=== PATIENT | male | born 1980 | race Caucasian/White ===

== ENCOUNTER 2019-10-17 03:30 | Emergency (ER) | payer SELFPAY ==
[2019-10-17] MEDS ORDERED: Acetaminophen/HYDROcodone 325-5 MG Tab PO ONE (03:31)
[2019-10-17 03:37] VITALS: BP 138/91; PULSE 109
[2019-10-17] MEDS ORDERED: Ketorolac 30 MG/ML SDV IVPUSH ONE (03:42)
[2019-10-17] MEDS ORDERED: Sodium Chloride 0.9% 1,000 ML IV ONE (04:12)
--- NOTE | 2019-10-17 04:17 | EDM.PDOC ---
ED HPI GENERAL MEDICAL PROBLEM - General Chief Complaint: Abdominal Pain Stated Complaint: abdominal pain Time Seen by Provider: 10/17/19 04:00 Source of Information: Reports: Patient History Limitations: Reports: No Limitations - History of Present Illness INITIAL COMMENTS - FREE TEXT/NARRATIVE: Gustabo is a 38 year old male who presents to ER with complaints of back and pelvic pain. States has a known kidney stone and now has recurring pain. Was seen in [place], [place] on the . Had "5 stones". Here visiting and helping a friend take care of his mother and "forgot his pain meds back in [place]". Was also placed on flomax and [place]. Admits was taking them until he came here yesterday. Onset: Sudden Duration: Hour(s): Location: Reports: Abdomen, Back Quality: Reports: Sharp Severity: Severe Associated Symptoms: Reports: Diaphoresis, Nausea/Vomiting. Denies: Chest Pain, Cough, Loss of Appetite, Malaise, Shortness of Breath, Weakness Upper Abdomen Pain Score (Numeric/FACES): 10 - Related Data Allergies Allergy/AdvReac Type Severity Reaction Status Date / Time No Known Allergies Allergy Verified 11/05/14 10:07 MDT Past Medical History Genitourinary History: Reports: Renal Calculus Social & Family History - Family History Family Medical History: Noncontributory - Tobacco Use Smoking Status *Q: Never Smoker - Caffeine Use Caffeine Use: Reports: Coffee, Energy Drinks, Soda - Recreational Drug Use Recreational Drug Use: Yes Recreational Drug Type: Reports: Marijuana/Hashish ED ROS GENERAL - Review of Systems Review Of Systems: See Below Constitutional: Denies: Fever, Chills, Malaise, Weakness HEENT: Reports: No Symptoms Respiratory: Denies: Shortness of Breath, Cough Cardiovascular: Denies: Chest Pain, Edema, Lightheadedness Endocrine: Denies: Fatigue GI/Abdominal: Reports: Abdominal Pain, Nausea, Vomiting : Reports: Flank Pain Musculoskeletal: Reports: No Symptoms Skin: Reports: Diaphoresis Neurological: Reports: No Symptoms ED EXAM, GI/ABD - Physical Exam Exam: See Below Exam Limited By: No Limitations General Appearance: Alert, WD/WN, No Apparent Distress Ears: Normal External Exam, Normal TMs Nose: Normal Inspection, Normal Mucosa, No Blood Throat/Mouth: Normal Inspection, Normal Oropharynx Head: Normocephalic Neck: Normal Inspection, Supple, Non-Tender Respiratory/Chest: No Respiratory Distress, Lungs Clear, Normal Breath Sounds Cardiovascular: Regular Rate, Rhythm GI/Abdominal Exam: Normal Bowel Sounds, Soft, Tender (lower quadrants) Extremities: Normal Inspection, No Pedal Edema Neurological: Alert, Oriented Skin Exam: Warm, Diaphoretic Course - Vital Signs Last Recorded V/S: Last Vital Signs Temp 97.8 F 10/17/19 03:35 Pulse 109 H 10/17/19 03:35 Resp 18 10/17/19 03:35 BP 138/91 H 10/17/19 03:35 Pulse Ox 98 10/17/19 03:35 - Orders/Labs/Meds Labs: Laboratory Tests 10/17/19 10/17/19 10/17/19 Range/Units 03:57 03:57 03:57 WBC 11.6 H (5.0-10.0) 10^3/uL RBC 5.49 (4.50-6.00) 10^6/uL Hgb 16.5 (14.0-18.0) g/dL Hct 48.1 (40.0-54.0) % MCV 87.6 (82.0-94.0) fL MCH 30.1 (27.0-32.0) pg MCHC 34.3 (33.0-38.0) g/dL RDW Coeff of Kady 13.5 (11.0-15.0) % Plt Count 276 (150-400) 10^3/uL Neut % (Auto) 52.1 (35-85) % Lymph % (Auto) 38.0 (10-55) % [place] % (Auto) 7.9 (0-16) % Eos % (Auto) 1.8 (0-5) % Baso % (Auto) 0.2 (0-3) % Neut # (Auto) 6.05 (1.80-7.00) 10^3/uL Lymph # (Auto) 4.42 (1.00-4.80) 10^3/uL Stoddard # (Auto) 0.92 H (0.00-0.80) 10^3/uL Eos # (Auto) 0.21 (0.00-0.45) 10^3/uL Baso # (Auto) 0.02 10^3/uL Sodium 137 (136-145) mEq/L Potassium 4.6 (3.5-5.0) mEq/L Chloride 97 L (98-106) mEq/L Carbon Dioxide 30 (21-32) mmol/L BUN 22 H (7-18) mg/dL Creatinine 1.4 H (0.7-1.3) mg/dL Est Cr Clr Drug Dosing 75.73 mL/min Estimated GFR (MDRD) 57 L (>=60) mL/min Glucose 203 H (75-99) mg/dL Calcium 8.8 (8.4-10.1) mg/dL Total Bilirubin 0.4 (0.0-1.0) mg/dL AST 20 (15-37) U/L ALT 41 (12-78) U/L Alkaline Phosphatase 65 (46-116) U/L C-Reactive Protein 1.2 H (0.2-0.8) mg/dL Total Protein 7.2 (6.4-8.2) g/dL Albumin 3.6 (3.4-5.0) g/dL Amylase 38 (25-115) U/L Lipase 119 (73-393) U/L Urine Color (YELLOW) Urine Appearance (CLEAR) Urine pH (4.5-8.0) Ur Specific [place] (1.003-1.020) Urine Protein (NEGATIVE) mg/dL Urine Glucose (UA) (NEGATIVE) mg/dL Urine Ketones (NEGATIVE) mg/dL Urine Occult Blood (NEGATIVE) Urine Nitrite (NEGATIVE) Urine Bilirubin (NEGATIVE) Urine Urobilinogen (0.2-1.0) EU/dL Ur Leukocyte Esterase (NEGATIVE) U Hyaline Cast (Auto) (NOT SEEN) /LPF Urine RBC (0-5) /HPF Urine WBC (0-5) /HPF Ur Squamous Epith Cells (NOT SEEN) /HPF Urine Opiates Screen Negative (NEGATIVE) Ur Oxycodone Screen Negative (NEGATIVE) Urine Methadone Screen Negative (NEGATIVE) Ur Barbiturates Screen Negative (NEGATIVE) U Tricyclic Antidepress Negative (NEGATIVE) Ur Phencyclidine Scrn Negative (NEGATIVE) Ur Amphetamine Screen Positive H (NEGATIVE) U Methamphetamines Scrn Positive H (NEGATIVE) Urine MDMA Screen Negative (NEGATIVE) U Benzodiazepines Scrn Negative (NEGATIVE) Urine Cocaine Screen Negative (NEGATIVE) U Marijuana (THC) Screen Negative (NEGATIVE) 08/01/20 Range/Units 03:57 WBC (5.0-10.0) 10^3/uL RBC (4.50-6.00) 10^6/uL Hgb (14.0-18.0) g/dL Hct (40.0-54.0) % MCV (82.0-94.0) fL MCH (27.0-32.0) pg MCHC (33.0-38.0) g/dL RDW Coeff of Kady (11.0-15.0) % Plt Count (150-400) 10^3/uL Neut % (Auto) (35-85) % Lymph % (Auto) (10-55) % [place] % (Auto) (0-16) % Eos % (Auto) (0-5) % Baso % (Auto) (0-3) % Neut # (Auto) (1.80-7.00) 10^3/uL Lymph # (Auto) (1.00-4.80) 10^3/uL [place] # (Auto) (0.00-0.80) 10^3/uL Eos # (Auto) (0.00-0.45) 10^3/uL Baso # (Auto) 10^3/uL Sodium (136-145) mEq/L Potassium (3.5-5.0) mEq/L Chloride (98-106) mEq/L Carbon Dioxide (21-32) mmol/L BUN (7-18) mg/dL Creatinine (0.7-1.3) mg/dL Est Cr Clr Drug Dosing mL/min Estimated GFR (MDRD) (>=60) mL/min Glucose (75-99) mg/dL Calcium (8.4-10.1) mg/dL Total Bilirubin (0.0-1.0) mg/dL AST (15-37) U/L ALT (12-78) U/L Alkaline Phosphatase (46-116) U/L C-Reactive Protein (0.2-0.8) mg/dL Total Protein (6.4-8.2) g/dL Albumin (3.4-5.0) g/dL Amylase (25-115) U/L Lipase (73-393) U/L Urine Color Yellow (YELLOW) Urine Appearance Clear (CLEAR) Urine pH 6.0 (4.5-8.0) Ur Specific [place] >= 1.030 H (1.003-1.020) Urine Protein 30 H (NEGATIVE) mg/dL Urine Glucose (UA) Negative (NEGATIVE) mg/dL Urine Ketones Negative (NEGATIVE) mg/dL Urine Occult Blood Negative (NEGATIVE) Urine Nitrite Negative (NEGATIVE) Urine Bilirubin Negative (NEGATIVE) Urine Urobilinogen 0.2 (0.2-1.0) EU/dL Ur Leukocyte Esterase Negative (NEGATIVE) U Hyaline Cast (Auto) Rare (NOT SEEN) /LPF Urine RBC Not seen (0-5) /HPF Urine WBC Not seen (0-5) /HPF Ur Squamous Epith Cells Rare (NOT SEEN) /HPF Urine Opiates Screen (NEGATIVE) Ur Oxycodone Screen (NEGATIVE) Urine Methadone Screen (NEGATIVE) Ur Barbiturates Screen (NEGATIVE) U Tricyclic Antidepress (NEGATIVE) Ur Phencyclidine Scrn (NEGATIVE) Ur Amphetamine Screen (NEGATIVE) U Methamphetamines Scrn (NEGATIVE) Urine MDMA Screen (NEGATIVE) U Benzodiazepines Scrn (NEGATIVE) Urine Cocaine Screen (NEGATIVE) U Marijuana (THC) Screen (NEGATIVE) Meds: Medications Discontinued Medications Generic Name Dose Route Start Last Admin Trade Name Freq PRN Reason Stop Dose Admin Hydrocodone Bitart/Acetaminophen 1 packet 10/17/19 04:57 10/17/19 05:02 Take Home: Acetaminophen/Hydrocod, 2 Tab Pack PO 10/17/19 04:58 1 packet ONETIME ONE Administration Hydromorphone HCl 0.5 mg 10/17/19 04:22 10/17/19 04:26 Dilaudid IVPUSH 10/17/19 04:23 0.5 mg ONETIME ONE Administration Sodium Chloride 1,000 mls @ 999 mls/hr 10/17/19 04:12 10/17/19 04:16 Normal Saline IV 10/17/19 05:12 999 mls/hr .BOLUS ONE Administration Ketorolac Tromethamine 30 mg 10/17/19 03:42 10/17/19 03:46 Toradol IVPUSH 10/17/19 03:43 30 mg ONETIME ONE Administration Tamsulosin HCl 0.4 mg 10/17/19 04:57 10/17/19 05:01 Flomax PO 10/17/19 04:58 0.4 mg ONETIME ONE Administration - Re-Assessments/Exams Free Text/Narrative Re-Assessment/Exam: 10/17/19 6899 Contacted [facility] in regards to recent visits. Did have a CT scan there with a 2 mm stone in the distal ureter. Also has evidence of inflammation and thickening of the bowel wall suggestive of gastroenteritis versus Crohn's. Patient was given toradol and Dilaudid there and had relief. States hasn't had to use the pain meds since that day as pain was gone until this am. Does not routinely doctor so has not established a regular provider near [place]. STates travels for his job. 0500-Patient has been given IV fluids, Toradol and Dilaudid and is not moaning or thrashing around. Still having pain but improved. Discussed need for his antibiotic that he has in [place] as well as his pain meds and Flomax. Will give him meds to cover him for the weekend until he can get back to his home. As pain is now in the suprapubic area, hopefully the stone is passing at this point. will need further follow up with a primary care provider for the bowel findings. Departure - Departure Time of Disposition: 05:04 Disposition: Home, Self-Care 01 Condition: Fair Clinical Impression: Ureteral calculus, right - Discharge Information *PRESCRIPTION DRUG MONITORING PROGRAM REVIEWED*: No *COPY OF PRESCRIPTION DRUG MONITORING REPORT IN PATIENT LEELA: No Referrals: PCP,None [Primary Care Provider] - Forms: ED Department Discharge Additional Instructions: 1. Push fluids 2. Avoid caffeine 3. Discontinue meth use 4. Flomax 0.4 mg daily for total 7 days 5. Hydrocodone 5/325 one to two tabs every 4-6 hours as needed for pain 6. Need to continue your Ceftin 7. Strain your urine 8. Follow up with a primary care provider for the inflammatory changes noted on CT with your small bowel. Sepsis Event Note (ED) - Evaluation Sepsis Screening Result: No Definite Risk - Focused Exam Vital Signs: Vital Signs Temp Pulse Resp BP Pulse Ox 10/17/19 03:35 97.8 F 109 H 18 138/91 H 98
[2019-10-17] MEDS ORDERED: HYDROmorphone 1 MG/ML Syringe IVPUSH ONE (04:22)
[2019-10-17] MEDS ORDERED: Take Home: Acetaminophen/HYDROcodone 325-5 MG, 2 Tab Pack PO ONE (04:57)
[2019-10-17] MEDS ORDERED: Tamsulosin 0.4 MG Cap.ER PO ONE (04:57)
== END 2019-10-17 05:21 | disposition home or self-care (01) ==
LOC: CC.ED 03:30
DX: N20.1 Calculus of ureter (principal); Z87.442 Personal history of urinary calculi; R11.2 Nausea with vomiting, unspecified
CPT/HCPCS: 36415; 80053; 80305; 81001; 82150; 83690; 85025; 86140; 96361; 96374; 96375; 99284; A9270; J1170; J1885; J7030